=== PATIENT | male | born 1945 | race Caucasian/White ===

== ENCOUNTER 2019-10-02 08:56 | Emergency (ER) | payer OTHER, SELFPAY ==
[2019-10-02] VITALS (7 sets, daily range): BP systolic 162–214; BP diastolic 73–99; PULSE 78–92; RESP 15–20; TEMP 36.6; O2SAT 82–99; BMI 29.7
--- NOTE | 2019-10-02 09:26 | W.ED.GENADLT ---
HPI - General Adult General: Chief complaint: General Medical Stated complaint: HIGH BP Time Seen by Provider: 10/02/19 09:02 History of Present Illness: HPI narrative: 74-year-old male presents to the emergency room with complaints of an elevated blood pressure and intermittent shortness of breath. 2 weeks ago he was admitted to inpatient at [facility] in [place] as an acute kidney injury and elevated blood pressure we do not have any records records of that. He was discharged home he states he was not discharged home on any medications he was not on any medications prior to that either. [place] went to the [place] and was started on blood pressure medicine 6 days ago 2 days ago he was seen at [place] in the emergency room for elevated blood pressure. They did not change any medicines at that time that he can recall. He states he continued to take his blood pressure medications daily since then. He denies getting any chest pain at all but he does get mildly short of breath with exertion. States he can walk about 50 to 75 feet and then he will begin to have shortness of breath. This been going on for the last 2 weeks now he is never had associated chest pain tightness or pressure with that however. Denies any recent fever sweats or chills no cough no productive cough. Onset (ago): week(s) (2) Severity: moderate Relieving factors: rest Exacerbating factors: other (Walking) Associated symptoms: Reports dyspnea, malaise and short of breath; Deny chest pain, cough, diaphoresis, fevers/chills, rash, palpitations, syncope or vomiting Treatments prior to arrival: none Review of Systems Const: Reports: malaise; Denies: diaphoresis ENMT: Denies: throat pain, ear pain, nasal discharge or nasal congestion Card: Reports: shortness of breath on exertion and shortness of breath when lying down; Denies: chest pain, palpitations, edema, swelling of feet/ankles, syncope or leg pain with exertion Resp: Reports: shortness of breath GI: Denies: abdominal pain, vomiting, vomiting blood, diarrhea, bloating, fecal incontinence, painful bowel movements, rectal pain, blood in stool or black tarry stool : Denies: flank pain, painful urination, urinary frequency or urinary urgency Skin/Breast: Denies: rash or itching [facility] ED PFSH: Medical History (Updated 10/02/19 @ 11:56 by Rick Edouard DO) Benign essential HTN Carpal tunnel syndrome Congestive heart failure Melanoma Surgical History (Updated 10/02/19 @ 11:56 by Rick Edouard DO) S/P trigger finger release Social History (Updated 10/02/19 @ 11:55 by Rick Edouard DO) Smoking and tobacco status: former smoker Alcohol intake: never Physical Exam Const: COMMON NORMALS: no apparent distress GENERAL APPEARANCE: cooperative and comfortable ORIENTATION/CONSCIOUSNESS: Yes awake, Yes oriented to person, Yes oriented to place and Yes oriented to time HENMT: COMMON NORMALS: normocephalic, head/scalp atraumatic, hearing grossly normal bilaterally, external ears normal, EAC's normal, TM's normal bilaterally, nasal mucous membranes and turbinates normal, moist oral mucous membranes and oropharynx normal HEAD & SCALP: normocephalic and atraumatic NOSE: nasal mucous membranes and turbinates normal EXTERNAL EAR: Yes external ears normal EXTERNAL AUDITORY CANAL: EAC's normal TYMPANIC MEMBRANE: TM's normal bilaterally Eye: COMMON NORMALS: PERRL, EOMs intact bilaterally, conjunctivae normal and no scleral icterus CONJUNCTIVA: Yes conjunctivae normal PUPIL: Yes PERRL Neck/C-Spine: COMMON NORMALS: full ROM, no lymphadenopathy, supple and no JVD Lymph: LYMPHATIC: no lymphadenopathy noted and no lymphedema noted Resp: COMMON NORMALS: normal respiratory effort, no retractions, no use of accessory muscles and clear to auscultation bilaterally AUSCULTATION: clear to auscultation bilaterally Cardio: COMMON NORMALS: no JVD, regular rate, regular rhythm and no murmurs RATE: regular rate RHYTHM: regular rhythm GI: COMMON NORMALS: soft to palpation and no hepatosplenomegaly AUSCULTATION: Yes normoactive bowel sounds PALPATION: Yes soft, No tender, No guarding and Yes no hepatosplenomegaly Extremity: COMMON NORMALS: normal to inspection, normal capillary refill, no clubbing, cyanosis or edema, no calf tenderness and no pedal edema Neuro: SENSORIUM/ORIENTATION: Yes oriented to person, Yes oriented to place and Yes oriented to time Skin: COMMON NORMALS: no rashes or lesions noted GENERAL SKIN EXAM: no rashes or lesions noted Course Vital Signs: Vital signs: Vital Signs Temperature 97.9 F 10/02/19 09:04 Pulse Rate 90 05/07/20 13:54 Respiratory Rate 15 10/02/19 13:54 Blood Pressure 164/73 10/02/19 13:54 Pulse Oximetry 94 10/02/19 13:54 MDM - General Adult MDM Narrative: Medical decision making narrative: CT of the chest did not show any evidence of PE. He does have some congestive heart failure with some atelectasis. Suspect this is being exacerbated by his hypertension. We will have him stop his hydrochlorothiazide and add carvedilol and Lasix. I suspect he may need to have the carvedilol increased or further adjustments made to control his blood pressure. We will get him set up for cardiology and set up an echocardiogram. His creatinine was a little borderline today but given the length of time he had symptoms of felt it was important to get a CT of the chest to rule out PE especially given his elevated d-dimer. We gave him some fluids also give him some Lasix to try to prevent any worsening of his kidney function. He also has some anemia this needs to be followed up with Dr. Mixon and we will get him referred there for further evaluation as well. Lab Data: Labs: Lab Results 10/02/19 10/02/19 10/02/19 Range/Units 09:40 09:40 09:40 WBC 6.3 (4.0-10.0) 10^3/ uL RBC 2.93 L (4.1-5.3) 10^6/u L Hgb 8.9 L (11.7-16.6) g/dL Hct 27.0 L (42.0-52.0) % MCV 92.2 (80-94) fL MCH 30.4 (28.0-34.0) pg MCHC 33.0 (30.0-36.0) g/dL RDW 14.1 (12.1-15.1) % Plt Count 407 H (130-400) 10^3/c mm MPV 9.0 (7.4-10.4) fL Neut % (Auto) 71.6 % Lymph % (Auto) 17.4 % [place] % (Auto) 6.2 % Eos % (Auto) 3.8 % Baso % (Auto) 0.5 % Neut # (Auto) 4.5 (1.8-7.7) 10^3/u L Lymph # (Auto) 1.1 (0.8-4.8) 10^3/u L [place] # (Auto) 0.4 (0.2-0.9) 10^3/u L Eos # (Auto) 0.2 (0.0-0.8) 10^3/u L Baso # (Auto) 0.0 (0.0-0.1) 10^3/u L Nucleated RBC % (a uto) 0 % Nucleated RBCs # 0.0 /100WBC D-Dimer 1.73 H (0-0.59) ug/mIFE U Sodium 140 (136-145) mmol/L Potassium 4.3 (3.5-5.1) mmol/L Chloride 105 (98-107) mmol/L Carbon Dioxide 25 (22-29) mmol/L Anion Gap 14.3 (5-19) BUN 27 H (8-23) mg/dL Creatinine 1.6 H (0.7-1.2) mg/dL Glucose 108 (65-115) mg/dL Calculated Osmolal ity 288 (285-295) mOsm/k g Calcium 8.5 (8.5-10.5) mg/dL Total Bilirubin 0.4 (0.15-1.2) mg/dL AST 17 (0-40) U/L ALT 12 (0-41) U/L Alkaline Phosphata se 74 (40-130) IU/L Troponin T Baselin e (0-15) ng/mL Troponin T 120 Min [place] (0-15) ng/mL Delta Troponin T (0-10) ABS# NT-Pro-B Natriuret Pep 964 H (0-125) pg/mL Total Protein 5.8 L (6.6-8.7) g/dL Albumin 3.6 (3.5-5.2) g/dL Globulin 2.2 (1.3-4.6) g/dL Urine Color (Yellow) Urine Appearance (CLEAR) Urine pH (5-7) Ur Specific Gravit y (1.005-1.030) Urine Protein (Negative) Urine Glucose (UA) (Normal) Urine Ketones (Negative) Urine Blood (Negative) Urine Nitrate (Negative) Urine Bilirubin (NEGATIVE) Urine Urobilinogen (Negative) mg/dL Ur Leukocyte Jesica ase (Negative) Urine RBC (0-2) /hpf Urine WBC (0-5) /hpf Ur Squamous Epith Cells (0-5) Urine Bacteria (NONE) 10/02/19 10/02/19 10/02/19 Range/Units 09:40 10:02 12:30 WBC (4.0-10.0) 10^3/ uL RBC (4.1-5.3) 10^6/u L Hgb (11.7-16.6) g/dL Hct (42.0-52.0) % MCV (80-94) fL MCH (28.0-34.0) pg MCHC (30.0-36.0) g/dL RDW (12.1-15.1) % Plt Count (130-400) 10^3/c mm MPV (7.4-10.4) fL Neut % (Auto) % Lymph % (Auto) % [place] % (Auto) % Eos % (Auto) % Baso % (Auto) % Neut # (Auto) (1.8-7.7) 10^3/u L Lymph # (Auto) (0.8-4.8) 10^3/u L [place] # (Auto) (0.2-0.9) 10^3/u L Eos # (Auto) (0.0-0.8) 10^3/u L Baso # (Auto) (0.0-0.1) 10^3/u L Nucleated RBC % (a uto) % Nucleated RBCs # /100WBC D-Dimer (0-0.59) ug/mIFE U Sodium (136-145) mmol/L Potassium (3.5-5.1) mmol/L Chloride (98-107) mmol/L Carbon Dioxide (22-29) mmol/L Anion Gap (5-19) BUN (8-23) mg/dL Creatinine (0.7-1.2) mg/dL Glucose (65-115) mg/dL Calculated Osmolal ity (285-295) mOsm/k g Calcium (8.5-10.5) mg/dL Total Bilirubin (0.15-1.2) mg/dL AST (0-40) U/L ALT (0-41) U/L Alkaline Phosphata se (40-130) IU/L Troponin T Baselin e 36 H (0-15) ng/mL Troponin T 120 Min [place] 26.53 H (0-15) ng/mL Delta Troponin T -9.47 L (0-10) ABS# NT-Pro-B Natriuret Pep (0-125) pg/mL Total Protein (6.6-8.7) g/dL Albumin (3.5-5.2) g/dL Globulin (1.3-4.6) g/dL Urine Color Yellow (Yellow) Urine Appearance Clear (CLEAR) Urine pH 5.0 (5-7) Ur Specific Gravit y 1.015 (1.005-1.030) Urine Protein 3+ H (Negative) Urine Glucose (UA) Norm (Normal) Urine Ketones Negative (Negative) Urine Blood 3+ H (Negative) Urine Nitrate Negative (Negative) Urine Bilirubin Neg (NEGATIVE) Urine Urobilinogen Norm (Negative) mg/dL Ur Leukocyte Jesica ase Negative (Negative) Urine RBC 5-10 H (0-2) /hpf Urine WBC None (0-5) /hpf Ur Squamous Epith Cells 0-4 H (0-5) Urine Bacteria Trace (NONE) Discharge Plan Discharge Patient Disposition: Home, Self-Care Clinical Impression: Congestive heart failure, Benign essential HTN Condition: Stable Prescriptions: New furosemide 20 mg tablet 20 mg PO DAILY Qty: 30 RF: 0 carvedilol 3.125 mg tablet 3.125 mg PO BID Qty: 30 RF: 0 Discontinued hydrochlorothiazide 25 mg Tablet 25 mg PO DAILY RF: 0 No Action lisinopril 10 mg Tablet 10 mg PO DAILY RF: 0 Discharge Orders: Discharge Order (Routine); Ordered 10/02/19 Ordered By: Rick Edouard Referrals: Sumi Acosta MD [Physician] - (Hypertension, congestive heart failure) Discharge Diet: As Directed Patient Instructions: Heart Failure (ED), Low Sodium Diet (ED) Activity Restrictions/Additional Instructions: Low-sodium diet. Please weigh yourself daily and log as well as check blood pressure daily and bring to your next doctor's appointment. Case management will call to set up an echocardiogram and referral to cardiology. Discharge Date/Time: 10/02/19 14:04 Coding Level of Care Code ED File Clerk Data Entry for Chg Fwd Exam Comprehensive
--- NOTE | 2019-10-02 09:27 | XR_ITS ---
WS: [id number] XR chest 1V portable [id number] REASON FOR EXAM: dyspnea/cough FINDINGS: The cardiac silhouette was not enlarged. There is degenerate changes throughout the thoracic spine. A reticular nodular pattern in both lung benítez are seen. No pneumonia, pleural effusion, pulmonary edema, or mass effect. The hilum is and apices are normal. Small granulomas are seen throughout both lung benítez. XR/XR chest 1V portable [id number] IMPRESSION: Interstitial changes both lung benítez No active pneumonias Arteriosclerotic changes.
--- NOTE | 2019-10-02 09:27 | ECG_ITS ---
Measurements Intervals [place] Rate: 73 P: 52 ME: 152 QRS: 47 QRSD: 84 T: 71 QT: 386 QTc: 428 SINUS RHYTHM NONSPECIFIC T-WAVE ABNORMALITY No previous ECG available for comparison Electronically Signed On 10-02-2019 14:16:25 CDT by Sumi Acosta M.D. [id number]
[2019-10-02 09:51] LABS: Basophils % 0.5 %; Eosinophils # 0.2 10^3/uL (0.0-0.8); Eosinophils % 3.8 %; Hemoglobin 8.9 g/dL (11.7-16.6); Lymphocytes # 1.1 10^3/uL (0.8-4.8); Lymphocytes % 17.4 %; Mean Corpuscular Hemoglobin 30.4 pg (28.0-34.0); Mean Corpuscular Volume 92.2 fL (80-94); Monocytes # 0.4 10^3/uL (0.2-0.9); Monocytes % 6.2 %; Neutrophils # 4.5 10^3/uL (1.8-7.7); Neutrophils % 71.6 %; Nucleated Red Blood Cells % 0 %; Platelet Count 407 10^3/cmm (130-400); Red Blood Count 2.93 10^6/uL (4.1-5.3); Red Cell Distribution Width 14.1 % (12.1-15.1); White Blood Count 6.3 10^3/uL (4.0-10.0)
[2019-10-02] MEDS: amlodipine 10 mg Tablet PO (09:55)
[2019-10-02] MEDS: hyDRALAzine 20 mg/mL INJ 1 mL 10 MG IVP (09:55)
[2019-10-02 10:01] LABS: D Dimer 1.73 ug/mIFEU (0-0.59)
[2019-10-02 10:06] LABS: Troponin(5th) Baseline 36 ng/mL (0-15)
[2019-10-02 10:16] LABS: Alanine Aminotransferase 12 U/L (0-41); Albumin Level 3.6 g/dL (3.5-5.2); Alkaline Phosphatase 74 IU/L (40-130); Anion Gap 14.3 (5-19); Aspartate Amino Transferase 17 U/L (0-40); Blood Urea Nitrogen 27 mg/dL (8-23); Calcium 8.5 mg/dL (8.5-10.5); Carbon Dioxide 25 mmol/L (22-29); Chloride 105 mmol/L (98-107); Globulin 2.2 g/dL (1.3-4.6); Glucose 108 mg/dL (65-115); NT Pro B Type Natriuretic Pept 964 pg/mL (0-125); Osmolality Calculated 288 mOsm/kg (285-295); Potassium 4.3 mmol/L (3.5-5.1); Sodium 140 mmol/L (136-145); Total Bilirubin 0.4 mg/dL (0.15-1.2); Total Protein 5.8 g/dL (6.6-8.7)
[2019-10-02 10:24] LABS: Add Urine Microscopic? YES; Bilirubin Urine Neg (NEGATIVE); Blood Urine 3+ (Negative); Glucose Urine UA Norm (Normal); Ketones Urine Negative (Negative); Leukocyte Esterase Urine Negative (Negative); Nitrate Urine Negative (Negative); Protein Urine 3+ (Negative); Specific Gravity, Urine 1.015 (1.005-1.030); Urine Appearance Clear (CLEAR); Urine Color Yellow (Yellow); Urobilinogen Urine Norm (Negative)
[2019-10-02 10:25] LABS: Add Urine Culture? Yes; Bacteria Urine TRACE; Squamous Epithelial Cell Urine 0-4 (0-5)
--- NOTE | 2019-10-02 10:31 | CT_ITS ---
WS: [id number] CTA OF THE CHEST WITH PULMONARY EMBOLISM PROTOCOL TECHNIQUE: High-resolution contrast enhanced CTA of the chest with coronal and sagittal reformatted i mages with pulmonary embolism protocol. MIP images are also reviewed. CLINICAL INFORMATION: dyspnea COMPARISON: None. DLP: 586.[address] scans at [facility] use at least one of these dose optimization techniques: automat ed exposure control; mA and/or kV adjustment per patient size (includes targeted exams where dose is matched to clinical indication); or iterative reconstruction. FINDINGS: Proximal main pulmonary arteries are normal. Segmental and subsegmental pulmonary arteries are normal . No filling defects to indicate pulmonary embolus. Moderate bilateral pleural effusions with saira sive atelectasis in the lung bases. Interlobular septal thickening consistent with edema in the upper lobes. A few slightly prominent AP window and mediastinal lymph nodes likely reactive. Prominent rig ht hilar lymph node measuring 1.8 cm nonspecific but likely reactive. Normal caliber thoracic aorta. Adrenal glands are normal. Normal GE junction. Normal caliber upper ab dominal aorta partially visualized. Reflux in to the hepatic venous system compatible with increased right heart pressure/right heart failure. Notified Rick Edouard DO at 10/02/2019 11:[address]/CT angio chest PE protcl [id number] IMPRESSION: 1. No evidence for pulmonary embolus. 2. Moderate bilateral pleural effusions with compressive atelectasis in the malik ng bases. Interstitial edema in the upper lobes suspicious for CHF. 3. Reflux of contrast into the hepatic venous system compatible with right hea rt failure. 4. Prominent AP window, mediastinal, and right hilar lymph nodes nonspecific b ut likely reactive
[2019-10-02] MEDS: iodixanol 320 mg/mL 100mL Btl IV (10:52)
[2019-10-02] MEDS: sodium chloride 0.9% 1,000 ML 999 ML IV (11:22)
[2019-10-02] MEDS: FUROsemide 10 mg/mL SDV 2mL 20 MG IVP (11:48)
[2019-10-02] MEDS: hyDRALAzine 20 mg/mL INJ 1 mL IVP (12:15)
[2019-10-02 12:50] LABS: Troponin 5 2HR 26.53 ng/mL (0-15)
[2019-10-02 12:54] LABS: Troponin 5 2HR Delta -9.47 ABS# (0-10)
[2019-10-02] MEDS: ondansetron 2 mg/ML SDV 2 mL 4 MG IVP (12:59)
--- NOTE | 2019-10-02 15:27 | ECG_ITS ---
Measurements Intervals [place] Rate: 87 P: 59 AK: 170 QRS: 49 QRSD: 79 T: 52 QT: 366 QTc: 441 SINUS RHYTHM NONSPECIFIC T-WAVE ABNORMALITY No previous ECG available for comparison Electronically Signed On 10-02-2019 14:18:14 CDT by Sumi Acosta M.D. [id number]
--- NOTE | 2019-10-03 15:18 | DCPLANNER ---
client manager large law had message to schedule a follow up appointment for patient with [facility]. client manager large law called [facility], a follow up appointment was scheduled for September at 2:[address] Acosta. client manager large law called August [facility], gave her the information for the follow up appointment. client manager large law was told that the consult would be put in. client manager large law called patient, spoke with patients , gave her the appointment information. client manager large law also told August that patient needed a referral to Dr. Mixon, internal medicine, and field case manager was told that patient would need to contact his pact team about the referral to Dr. Mixon. Ludin gastelum informed patients of this.
--- NOTE | 2019-11-13 14:35 | DCPLANNER ---
Patient did attend appointment scheduled for 10.09.19 with [facility].
== END 2019-10-02 14:04 | disposition home or self-care (01) ==
PROVIDERS: Emergency Provider Family Medicine
DX: I11.0 Hypertensive heart disease with heart failure (principal); I50.9 Heart failure, unspecified; Z85.820 Personal history of malignant melanoma of skin; Z87.891 Personal history of nicotine dependence; Z79.899 Other long term (current) drug therapy
CPT/HCPCS: 12345; 36415; 71045; 71275; 80053; 81001; 83880; 84484; 85025; 85378; 87086; 93005; 96361; 96374; 96375; 96376; 99284; A9270; J0360; J1940; J2405; J7030; Q9967

== ENCOUNTER → 2019-10-29 10:25 | Outpatient (BNVA) | payer OTHER, SELFPAY | PROVIDERS: PCP Family Medicine; Visit Provider Urology | DX: N40.0 Benign prostatic hyperplasia without lower urinary tract symptoms (principal); R97.20 Elevated prostate specific antigen [PSA] | CPT/HCPCS: 81001 ==

== ENCOUNTER 2019-10-31 12:35 | Outpatient (CLI) | payer OTHER, SELFPAY ==
--- NOTE | 2019-10-31 12:45 | USCV_ITS ---
Adolfo Garcia Age: 74 Gender: M : 1945 Exam Date: 10/31/2019 12:56 Ordering Phys: Sumi Acosta MD ([email or web address]) Technologist: Louisa Garcia [place] [facility] [place] CHF BP: 116 / 61 HR: 63 Rhythm: Sinus Technical Quality: Adequate MEASUREMENTS (Male / Female) Normal Values 2D ECHO LV Diastolic Diameter PLAX 5.0 cm 4.2 - 5.9 / 3.9 - 5.3 cm LV Systolic Diameter PLAX 3.0 cm LV Chamber Size 3.8 cm IVS Diastolic Thickness 0.8 cm 0.6 - 1.0 / 0.6 - 0.9 cm IVS Systolic Thickness 1.2 cm LVPW Diastolic Thickness 1.3 cm 0.6 - 1.0 / 0.6 - 0.9 cm LVPW Systolic Thickness 2.1 cm RV Chamber Size 3.6 cm LVOT Diameter 2.1 cm LV Ejection Fraction 2D Teich 71.6 % LV Ejection Fraction MOD 2C 45.4 % LV Ejection Fraction 2C AL 46.1 % LA Diameter 3.9 cm LA Width 3.3 cm LA Height 4.1 cm RA Width 3.2 cm RA Height 4.0 cm Aorta at Sinotubular Diameter 2.9 cm M-MODE LV Diastolic Diameter MM 5.3 cm 4.2 - 5.9 / 3.9 - 5.3 cm LV Systolic Diameter MM 3.6 cm LV Ejection Fraction MM Teich 58.4 % IVS Diastolic Thickness MM 0.6 cm 0.6 - 1.0 / 0.6 - 0.9 cm IVS Systolic Thickness MM 0.9 cm LVPW Diastolic Thickness MM 0.7 cm 0.6 - 1.0 / 0.6 - 0.9 cm LVPW Systolic Thickness MM 0.9 cm Aortic Annulus Diameter 3.0 cm LA Ao Ratio MM 1.3 MV E Point Septal Separation 0.6 cm DOPPLER AV Peak Velocity 126.0 cm/s LVOT Peak Velocity 106.0 cm/s AV Area Cont Eq vti 2.6 cm squared AV Area Cont Eq pk 2.9 cm squared MV Area PHT 2.7 cm squared Mitral E to A Ratio 0.8 MV E' Velocity 8.0 cm/s Mitral E to MV E' Ratio 9.8 Mitral E to LV E' Lateral Ratio 8.7 Mitral E to LV E' Septal Ratio 11.5 TR Peak Velocity 316.0 cm/s TR Peak Gradient 39.9 mmHg TV Peak E Velocity 37.0 cm/s Right Atrial Pressure 3.0 mmHg Pulmonary Artery Systolic Pressu 42.9 mmHg PV Peak Velocity 80.0 cm/s RV Acceleration Time 0.1 s RV Ejection Time 0.3 s RV AcT/ET 0.3 FINDINGS Left Ventricle Normal left ventricular size, systolic function and wall thickness, with no regional wall motion abnormalities. Left ventricular ejection fraction is estimated at 65 %. Grade I diastolic dysfunction (abnormal relaxation filling pattern), normal to mildly elevated filling pressures. Right Ventricle Normal right ventricular size and systolic function, RVSP 31 mmHg. Right Atrium Normal right atrial size. Right atrial pressure estimated at 3 mmHg. Left Atrium Normal left atrial size. Mitral Valve Mildly thickened mitral valve. No mitral valve stenosis. Mild mitral valve regurgitation. Aortic Valve Structurally normal trileaflet aortic valve. No aortic valve stenosis. No aortic valve regurgitation. Tricuspid Valve Structurally normal tricuspid valve. No tricuspid valve stenosis. Trace tricuspid valve regurgitation. Pulmonic Valve Structurally normal pulmonic valve. No pulmonary valve stenosis. Trace pulmonary valve regurgitation. Pericardium No pericardial effusion. Aorta Normal size aortic root and proximal ascending aorta. CONCLUSIONS 1. Normal left ventricular size, systolic function and wall thickness, with no regional wall motion abnormalities. Left ventricular ejection fraction is estimated at 65 %. Grade I diastolic dysfunction (abnormal relaxation filling pattern), normal to mildly elevated filling pressures. 2. Normal right ventricular size and systolic function, RVSP 31 mmHg. 3. Mild mitral valve regurgitation. 4. No prior similar studies to compare. Sumi Acosta MD (Electronically Signed) Final Date: 02 November 2019 17:52 S
== END 2019-10-31 12:36 | disposition home or self-care (01) ==
PROVIDERS: PCP Family Medicine; Visit Provider Internal Medicine Cardiovascular Disease
DX: I50.9 Heart failure, unspecified (principal); I51.81 Takotsubo syndrome; T50.905A Adverse effect of unspecified drugs, medicaments and biological substances, initial encounter; E87.5 Hyperkalemia
CPT/HCPCS: 80048; 83735; 83880; 93306

== ENCOUNTER → 2019-12-15 08:16 | Outpatient (BNVA) | payer OTHER, SELFPAY | PROVIDERS: PCP Family Medicine; Visit Provider Urology | DX: N40.0 Benign prostatic hyperplasia without lower urinary tract symptoms (principal); R97.20 Elevated prostate specific antigen [PSA] | CPT/HCPCS: 81001; 84153 ==

== ENCOUNTER → 2020-04-02 11:13 | Outpatient (BNVA) | payer OTHER, SELFPAY | PROVIDERS: PCP Family Medicine; Visit Provider Internal Medicine Cardiovascular Disease | DX: D64.9 Anemia, unspecified (principal); R97.20 Elevated prostate specific antigen [PSA]; I12.9 Hypertensive chronic kidney disease with stage 1 through stage 4 chronic kidney disease, or unspecified chronic kidney disease; N18.30 Chronic kidney disease, stage 3 unspecified; I50.9 Heart failure, unspecified | CPT/HCPCS: 80053; 83735; 85025 ==

== ENCOUNTER → 2020-04-26 09:16 | Outpatient (BNVA) | payer OTHER, SELFPAY | PROVIDERS: PCP Family Medicine; Visit Provider Urology | DX: R97.20 Elevated prostate specific antigen [PSA] (principal); N40.0 Benign prostatic hyperplasia without lower urinary tract symptoms | CPT/HCPCS: 81003; 84153 ==

== ENCOUNTER → 2020-11-08 11:07 | Outpatient (BNVA) | payer OTHER, SELFPAY | PROVIDERS: PCP Family Medicine; Visit Provider Internal Medicine Cardiovascular Disease | DX: I50.9 Heart failure, unspecified (principal); I10 Essential (primary) hypertension; R06.00 Dyspnea, unspecified; I50.32 Chronic diastolic (congestive) heart failure; G47.10 Hypersomnia, unspecified; R97.20 Elevated prostate specific antigen [PSA]; D64.9 Anemia, unspecified; N18.30 Chronic kidney disease, stage 3 unspecified | CPT/HCPCS: 80053; 83735; 83880 ==

== ENCOUNTER → 2020-12-27 08:49 | Outpatient (BNVA) | payer OTHER, SELFPAY | PROVIDERS: PCP Family Medicine; Visit Provider Urology | DX: R97.20 Elevated prostate specific antigen [PSA] (principal); N40.1 Benign prostatic hyperplasia with lower urinary tract symptoms; R39.12 Poor urinary stream; N18.30 Chronic kidney disease, stage 3 unspecified | CPT/HCPCS: G0103 ==

== ENCOUNTER 2021-06-27 18:36 | Emergency (ER) | payer OTHER, MEDICARE, SELFPAY ==
[2021-06-27 18:44] VITALS: BP 169/84; PULSE 82; RESP 18; TEMP 37.7; O2SAT 97; BMI 29.2
--- NOTE | 2021-06-27 19:14 | XRR_ITS ---
PROCEDURE INFORMATION: Exam: XR Chest Exam date and time: 06/27/2021 7:14 PM Age: 76 years old Clinical indication: Other: High blood pressure; Additional info: AMS TECHNIQUE: Imaging protocol: XR of the chest. Views: 1 view. COMPARISON: CR XR chest 1V portable [id number] 10/02/2019 9:27 AM FINDINGS: Lungs: Unremarkable. No consolidation. Pleural spaces: Unremarkable. No pleural effusion. No pneumothorax. Heart/Mediastinum: Unremarkable. No cardiomegaly. Bones/joints: Unremarkable. Incidental thoracic spurs XR/XR chest 1V portable [id number] IMPRESSION: The lungs are clear
--- NOTE | 2021-06-27 19:14 | CTR_ITS ---
PROCEDURE INFORMATION: Exam: CT Head Without Contrast Exam date and time: 06/27/2021 7:14 PM Age: 76 years old Clinical indication: Injury or trauma; Fall; Blunt trauma (contusions or hematomas); Altered mental status/memory loss; Additional info: AMS TECHNIQUE: Imaging protocol: Computed tomography of the head without contrast. Radiation optimization: All CT scans at this facility use at least one of these dose optimization techniques: automated exposure control; mA and/or kV adjustment per patient size (includes targeted exams where dose is matched to clinical indication); or iterative reconstruction. COMPARISON: No relevant prior studies available. RADIATION DOSE METRICS: Total DLP (mGy-cm): 991.25 FINDINGS: Brain: No hemorrhage. Mild diffuse cerebral atrophy. No significant white matter disease. No mass effect. Cerebral ventricles: No ventriculomegaly. Paranasal sinuses: Visualized sinuses are unremarkable. No fluid levels. Mastoid air cells: Trace right mastoid effusion. Left mastoid air cells are well pneumatized. Bones/joints: Unremarkable. No acute fracture. Soft tissues: Unremarkable. CT/CT head wo con* [id number] IMPRESSION: 1. No acute intracranial abnormality. 2. Trace right mastoid effusion.
--- NOTE | 2021-06-27 21:14 | ECG_ITS ---
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
--- NOTE | 2021-06-27 22:52 | CTR_ITS ---
PROCEDURE INFORMATION: Exam: CT Angiography Head With Contrast, Arteriography Exam date and time: 06/27/2021 10:52 PM Age: 76 years old Clinical indication: Dizziness and giddiness and headache and speech disturbance; Slurred speech; Additional info: CVA TECHNIQUE: Imaging protocol: Computed tomography angiography of the head with contrast. Exam focused on the arteries. 3D rendering (Not supervised by radiologist): MIP and/or 3D reconstructed images were created by the technologist. Radiation optimization: All CT scans at this facility use at least one of these dose optimization techniques: automated exposure control; mA and/or kV adjustment per patient size (includes targeted exams where dose is matched to clinical indication); or iterative reconstruction. Contrast material: OMNI 350; Contrast volume: 95 ml; Contrast route: INTRAVENOUS (IV); COMPARISON: CT head wo con* [id number] 06/27/2021 8:21 PM RADIATION DOSE METRICS: Total DLP (mGy-cm): 2461.39 FINDINGS: ANTERIOR CIRCULATION: Right internal carotid artery: Unremarkable. Intracranial segment is patent with no significant stenosis. No aneurysm. Right middle cerebral artery: Unremarkable. No occlusion or significant stenosis. No aneurysm. Right anterior cerebral artery: Unremarkable. No occlusion or significant stenosis. No aneurysm. Left internal carotid artery: Unremarkable. Intracranial segment is patent with no significant stenosis. No aneurysm. Left middle cerebral artery: Unremarkable. No occlusion or significant stenosis. No aneurysm. Left anterior cerebral artery: Unremarkable. No occlusion or significant stenosis. No aneurysm. POSTERIOR CIRCULATION: Right vertebral artery: Unremarkable. No occlusion or significant stenosis. No aneurysm. Left vertebral artery: Unremarkable. No occlusion or significant stenosis. No aneurysm. Basilar artery: Unremarkable. No occlusion or significant stenosis. No aneurysm. Right posterior cerebral artery: Unremarkable. No occlusion or significant stenosis. No aneurysm. Left posterior cerebral artery: Unremarkable. No occlusion or significant stenosis. No aneurysm. Brain: No definite mass, mass effect, or midline shift. Cerebral ventricles: No ventriculomegaly. Bones/joints: No acute findings. Soft tissues: Unremarkable. PROCEDURE INFORMATION: Exam: CT Angiography Neck With Contrast Exam date and time: 06/27/2021 10:52 PM Age: 76 years old Clinical indication: Dizziness and giddiness and headache and speech disturbance; Slurred speech; Additional info: CVA TECHNIQUE: Imaging protocol: Computed tomography angiography of the neck with contrast. 3D rendering (Not supervised by radiologist): MIP and/or 3D reconstructed images were created by the technologist. Radiation optimization: All CT scans at this facility use at least one of these dose optimization techniques: automated exposure control; mA and/or kV adjustment per patient size (includes targeted exams where dose is matched to clinical indication); or iterative reconstruction. Contrast material: OMNI 350; Contrast volume: 95 ml; Contrast route: INTRAVENOUS (IV); COMPARISON: CT head wo [facility]* [id number] 06/27/2021 8:21 PM RADIATION DOSE METRICS: Total DLP (mGy-cm): 2461.39 FINDINGS: Right common carotid artery: No stenosis. No dissection or occlusion. Right internal carotid artery: No stenosis of the extracranial segment. No dissection or occlusion. Right external carotid artery: No occlusion or stenosis of the origin. Left common carotid artery: No stenosis. No dissection or occlusion. Left internal carotid artery: No stenosis of the extracranial segment. No dissection or occlusion. Left external carotid artery: No occlusion or stenosis of the origin. Right vertebral artery: No stenosis. No dissection or occlusion. Left vertebral artery: No stenosis. No dissection or occlusion. Soft tissues: Normal. No significant soft tissue swelling. Bones/joints: No acute fracture. CT/CT angio headneck* [id number] IMPRESSION: No large vessel stenosis or occlusion. IMPRESSION: No stenosis or occlusion. REFERENCES: NASCET CRITERIA. The degree of internal carotid artery stenosis is based on NASCET criteria. Normal is no stenosis. Mild is less than 50% stenosis. Moderate is 50-69% stenosis. Severe is 70% to 99% stenosis. Total occlusion is no detectable patent lumen.
[2021-06-27 23:12] LABS: Basophils % 0.8 %; Eosinophils # 0.1 10^3/uL (0.0-0.8); Eosinophils % 1.2 %; Hematocrit 43.2 % (42.0-52.0); Hemoglobin 14.4 g/dL (11.7-16.6); Lymphocytes # 0.9 10^3/uL (0.8-4.8); Lymphocytes % 18.3 %; Mean Corpuscular HGB Conc 33.3 g/dL (30.0-36.0); Mean Corpuscular Hemoglobin 29.5 pg (28.0-34.0); Mean Corpuscular Volume 88.5 fl (80-94); Mean Platelet Volume 8.7 fL (7.4-10.4); Monocytes # 0.7 10^3/uL (0.2-0.9); Neutrophils # 3.38 10^3/uL (1.8-7.7); Neutrophils % 66.3 %; Nucleated Red Blood Cells % 0 %; Platelet Count 262 10^3/cmm (130-400); Red Blood Count 4.88 10^6/uL (4.1-5.3); Red Cell Distribution Width 11.9 % (12.1-15.1); White Blood Count 5.1 10^3/uL (4.0-10.0)
--- NOTE | 2021-06-27 23:21 | W.ED.AMS ---
HPI - Altered Mental Status General: Chief Complaint: Altered Mental Status Stated Complaint: High Blood Pressure\Falling Time Seen by Provider: 06/27/21 22:47 Source: patient Mode of arrival: ambulatory Limitations: no limitations History of Present Illness: 76-year-old male who states that since noon he has had difficulty walking with multiple falls. He states that roughly 3 falls he states that last fall around 6:54 PM and he had about a 2 to 3-minute of slurred speech after that. He states he had dizziness at times with this and just felt weak. No history of stroke he states he also had a cough and low-grade fever denies any chest pain he has had mild headaches. Associated symptoms: Deny depression Review of Systems Const: Reports: fever(s); Denies: chills, body aches or change in appetite Eyes: Denies: blurry vision or eye discomfort ENMT: Denies: throat pain or dental pain Card: Denies: chest pain Resp: Reports: non-productive cough; Denies: dyspnea GI: Denies: abdominal pain, nausea, vomiting or diarrhea : Denies: dysuria Musc: Denies: neck pain or back pain Skin/Breast: Denies: rash Neuro: Reports: numbness in extremities, weakness in extremities and Slurred speech present; Denies: headache(s) Psych: Denies: depression Brian/Lymph: Denies: easy bruising All/Imm: Denies: urticaria PFSH ED PFSH: Medical History Benign essential HTN Carpal tunnel syndrome Congestive heart failure Melanoma OVI (obstructive sleep apnea) Surgical History S/P trigger finger release Family History Other Lung disease Social History Smoking and tobacco status: never smoked Alcohol intake: never Adopted: No Caregiver/support person: No Lives independently: No Household members: spouse Marital status: Current occupational status: retired History of recent travel: No Current gender identity: Male Physical Exam Const: COMMON NORMALS: no acute distress, patient oriented x3 and healthy appearing HENMT: COMMON NORMALS: normocephalic and atraumatic HEAD & SCALP: normocephalic and atraumatic Eye: COMMON NORMALS: Equal, round and reactive pupils present and EOMs intact bilaterally PUPIL: Yes Equal, round and reactive pupils present Neck/C-Spine: COMMON NORMALS: full ROM and supple Chest: COMMONS NORMALS: normal inspection of the chest and normal palpation of entire chest wall Resp: COMMON NORMALS: normal respiratory effort, No retractions, No use of accessory muscles and clear to auscultation bilaterally AUSCULTATION: clear to auscultation bilaterally Cardio: COMMON NORMALS: regular rate, regular rhythm and No murmurs present (Cardio) RATE: regular rate RHYTHM: regular rhythm GI: COMMON NORMALS: Normal to inspection, nondistended, normoactive bowel sounds present, Soft to palpation, non-tender and no masses PALPATION: Yes Soft to palpation Extremity: COMMON NORMALS: normal to inspection and full ROM Neuro: COMMON NORMALS: patient oriented x3, moves all extremities and no focal motor deficits Psych: COMMON NORMALS: mental status grossly normal, Normal thought process present and cooperative THOUGHT PROCESS: Normal thought process present Skin: COMMON NORMALS: no rashes or lesions noted and no wounds GENERAL SKIN EXAM: no rashes or lesions noted Course Vital Signs: Vital signs: Vital Signs Temperature 99.9 F H 06/27/21 18:44 Pulse Rate 82 06/27/21 18:44 Respiratory Rate 18 06/27/21 18:44 Blood Pressure 169/84 06/27/21 18:44 Pulse Oximetry 97 06/27/21 18:44 MDM - Altered Mental Status Medical Decision Making Patient presents with generalized weakness cough and fever did test COVID positive not requiring oxygen has had multiple falls and had a very brief period of slurred speech earlier CT CTA here is normal no signs of stroke I did offer him admission for further work-up he states he feels improved and he would just like to go home if he has any other episodes he is return immediately he is to follow-up his PCP and return if worsening. Lab Data : 06/27/21 23:05 06/27/21 23:05 Radiology Impressions Chest X-Ray 06/27/21 19:14 IMPRESSION: The lungs are clear Head CT 06/27/21 19:14 IMPRESSION: 1. No acute intracranial abnormality. 2. Trace right mastoid effusion. Head/Neck CTA 06/27/21 22:52 IMPRESSION: No large vessel stenosis or occlusion. IMPRESSION: No stenosis or occlusion. REFERENCES: NASCET CRITERIA. The degree of internal carotid artery stenosis is based on NASCET criteria. Normal is no stenosis. Mild is less than 50% stenosis. Moderate is 50-69% stenosis. Severe is 70% to 99% stenosis. Total occlusion is no detectable patent lumen. Laboratory Results WBC 5.1 10^3/uL (4.0-10.0) 06/27/21 23:05 RBC 4.88 10^6/uL (4.1-5.3) 06/27/21 23:05 Hgb 14.4 g/dL (11.7-16.6) 06/27/21 23:05 Hct 43.2 % (42.0-52.0) 06/27/21 23:05 MCV 88.5 fl (80-94) 06/27/21 23:05 MCH 29.5 pg (28.0-34.0) 06/27/21 23:05 MCHC 33.3 g/dL (30.0-36.0) 06/27/21 23:05 RDW 11.9 % (12.1-15.1) L 06/27/21 23:05 Plt Count 262 10^3/cmm (130-400) 06/27/21 23:05 MPV 8.7 fL (7.4-10.4) 06/27/21 23:05 Neut % (Auto) 66.3 % 06/27/21 23:05 Lymph % (Auto) 18.3 % 06/27/21 23:05 [place] % (Auto) 13.0 % 06/27/21 23:05 Eos % (Auto) 1.2 % 06/27/21 23:05 Baso % (Auto) 0.8 % 06/27/21 23:05 Neut # (Auto) 3.38 10^3/uL (1.8-7.7) 06/27/21 23:05 Lymph # (Auto) 0.9 10^3/uL (0.8-4.8) 06/27/21 23:05 [place] # (Auto) 0.7 10^3/uL (0.2-0.9) 06/27/21 23:05 Eos # (Auto) 0.1 10^3/uL (0.0-0.8) 06/27/21 23:05 Baso # (Auto) 0.0 10^3/uL (0.0-0.1) 06/27/21 23:05 Nucleated RBC % (auto) 0 % 06/27/21 23:05 Nucleated RBCs # 0.0 /100WBC 06/27/21 23:05 PT 13.40 SECONDS (12.1-14.9) 06/27/21 23:05 INR 0.99 (0.8-1.2) 06/27/21 23:05 Sodium 134 mmol/L (136-145) L 06/27/21 23:05 Potassium 4.0 mmol/L (3.5-5.1) 06/27/21 23:05 Chloride 100 mmol/L (98-107) 06/27/21 23:05 Carbon Dioxide 24 mmol/L (22-29) 06/27/21 23:05 Anion Gap 14.0 (5-19) 06/27/21 23:05 BUN 17 mg/dL (8-23) 06/27/21 23:05 Creatinine 1.0 mg/dL (0.7-1.2) 06/27/21 23:05 GFR Calculation Not Reportable 06/27/21 23:05 Glucose 81 mg/dL (65-115) 06/27/21 23:05 Calculated Osmolality 279 mOsm/kg (285-295) L 06/27/21 23:05 Calcium 8.5 mg/dL (8.5-10.5) 06/27/21 23:05 Total Bilirubin 0.6 mg/dL (0.15-1.2) 06/27/21 23:05 AST 22 U/L (0-40) 06/27/21 23:05 ALT 17 U/L (0-41) 06/27/21 23:05 Alkaline Phosphatase 104 IU/L (40-130) 06/27/21 23:05 Troponin T Baseline 11 ng/L (0-15) 06/27/21 23:05 Total Protein 7.2 g/dL (6.6-8.7) 06/27/21 23:05 Albumin 4.5 g/dL (3.5-5.2) 06/27/21 23:05 Globulin 2.7 g/dL (1.3-4.6) 06/27/21 23:05 Urine Color Yellow (Yellow) 06/27/21 23:05 Urine Appearance Clear (CLEAR) 06/27/21 23:05 Urine pH 5 (5-7) 06/27/21 23:05 Ur Specific [place] 1.020 (1.005-1.030) 06/27/21 23:05 Urine Protein Neg (Negative) 06/27/21 23:05 Urine Glucose (UA) Norm (Normal) 06/27/21 23:05 Urine Ketones 1+ (Negative) H 06/27/21 23:05 Urine Blood Neg (Negative) 06/27/21 23:05 Urine Nitrate Negative (Negative) 06/27/21 23:05 Urine Bilirubin Neg (Negative) 06/27/21 23:05 Urine Urobilinogen Norm mg/dL (Negative) 06/27/21 23:05 Ur Leukocyte Esterase Negative (Negative) 06/27/21 23:05 SARS-CoV-2 Ag (Rapid) Positive (Negative) H 06/27/21 23:30 Discharge Plan Discharge Patient Disposition: Home Clinical Impression: COVID-19, Weakness Condition: Stable Prescriptions: No Action hydralazine 50 mg tablet 50 mg PO TID Qty: 270 2RF amlodipine 10 mg tablet 10 mg PO DAILY Qty: 90 3RF Discharge Orders: Discharge ED (Routine); Ordered 06/28/21 Ordered By: Andrew Sherman Referrals: Oneyda Marin MD [Primary Care Provider] - 1-3 days Discharge Diet: Advance as tolerated Discharge Activity: Resume usual activity Patient Instructions: COVID-19 (Coronavirus Disease 2019) (ED) Coding Level of Care Code ED Video Production Coordinator for g Fwd Exam Comprehensive NIH stroke score NIHSS Level Of Consciousness - 1a: 0 Level Of Consciousness Questions - 1b: Both Correct Level Of Consciousness Commands - 1c: Both Correct Best Gaze - 2: Normal Visual [place] - 3: No Visual Loss Facial Palsy - 4: Normal Motor Arm Right - 5: No Drift Motor Arm Left - 5: No Drift Motor Leg Right - 6: No Drift Motor Leg Left - 6: No Drift Limb Ataxia - 7: Absent Sensory - 8: Normal Best Language - 9: No Aphasia Dysarthia - 10: Normal Extinction And Inattention - 11: 0 Score Total Score: 0
[2021-06-27 23:23] LABS: INR 0.99 (0.8-1.2)
[2021-06-27 23:44] LABS: Add Urine Microscopic? NO; Charge for UA Resulting for Rev
[2021-06-27 23:47] LABS: Bilirubin Urine Neg (Negative); Blood Urine Neg (Negative); Glucose Urine UA Norm (Normal); Ketones Urine 1+ (Negative); Leukocyte Esterase Urine Negative (Negative); Nitrate Urine Negative (Negative); Protein Urine Neg (Negative); Troponin(5th) Baseline 11 ng/L (0-15); Urine Appearance Clear (CLEAR); Urine Color Yellow (Yellow); Urobilinogen Urine Norm (Negative); pH Urine 5 (5-7)
[2021-06-27 23:50] LABS: Alanine Aminotransferase 17 U/L (0-41); Albumin Level 4.5 g/dL (3.5-5.2); Alkaline Phosphatase 104 IU/L (40-130); Aspartate Amino Transferase 22 U/L (0-40); Blood Urea Nitrogen 17 mg/dL (8-23); Calcium 8.5 mg/dL (8.5-10.5); Carbon Dioxide 24 mmol/L (22-29); Chloride 100 mmol/L (98-107); Globulin 2.7 g/dL (1.3-4.6); Glucose 81 mg/dL (65-115); Osmolality Calculated 279 mOsm/kg (285-295); Sodium 134 mmol/L (136-145); Total Bilirubin 0.6 mg/dL (0.15-1.2); Total Protein 7.2 g/dL (6.6-8.7)
[2021-06-27 23:53] LABS: SARS Covid-2 Antigen Positive (Negative)
[2021-06-27] MEDS: iohexol 350 mg/mL 100 mL Btl IV (23:59)
[2021-06-28 00:05] VITALS: BP 148/95; PULSE 74; RESP 19; O2SAT 95
[2021-06-28 01:06] VITALS: BP 101/59; PULSE 66; RESP 22; O2SAT 96
== END 2021-06-28 00:50 | disposition home or self-care (01) ==
PROVIDERS: Emergency Provider Emergency Medicine; PCP Family Medicine
DX: U07.1 COVID-19 (principal); I11.0 Hypertensive heart disease with heart failure; I50.9 Heart failure, unspecified
CPT/HCPCS: 70450; 70496; 70498; 71045; 80053; 81003; 84484; 85025; 85610; 87426; 93005; 99283; Q9967